=== PATIENT | female | born 1980 | race Caucasian/White ===

== ENCOUNTER 2017-01-08 11:32 | Emergency (ER) | payer MEDICARE, MEDICAID ==
[~2017-01-08] VITALS: Ht 170.2 cm; Wt 220.4 kg
[~2017-01-08 11:32] MED LIST: CYCLOBENZAPRINE10 M2 OR; FLUOXETINE20 M2 FT; FUROSEMIDE 40MG40 M1 PO; LISINOPRIL10 MG PO; MELOXICAM15 MG PO; MORPHINE SULFAT30 M3 PO; QUETIAPINE FUM100 M2 PO; RANITIDINE300 MG PO; TRAMADOL HYDROC50 M1 PO; WARFARIN SODIU7.5 MG PO; WARFARIN SODIUM5 MG PO
--- NOTE | 2017-01-08 11:55 | Emergency Room Report ---
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 N Clinical Suspician of Infection? N Mental Status: 1 - Regular (Normal Baseline) Sepsis Risk:Possible Sepsis Risk Have you (or family members/close friends) recently traveled outside the [place]? N If Yes, where/when: Have you had exposure to infectious disease within the past month? N TB? Other? Specify: 36 years old white female with multiple medical problems including obesity confined to wheelchair, diabetes mellitus [id number], psoriasis, pulmonary embolism and recent history of anterior abdominal wall skin infection. She has been seeing Dr. Montgomery has been treating her with Neosporin and frequent dressings with improvement of the midline region. They noticed having faint bruising rash to the lateral aspect of the abdominal. It was markedly with the plan and she'll call Dr. Montgomery who told her to come to the ED and be checked. The rash is still within the pen marking. She denies having fever last night but she had a fever the night before. Source patient, RN notes reviewed, family Exam Limitations no limitations ALLERGIES Coded Allergies: No Known Allergies (01/08/17) Home Medications Reported Medications TRAMADOL HCL (Tramadol Hydrochloride) 50-100 MG PO Q4-6HP #180 Lisinopril 10 MG PO DAILY #30 MORPHINE SULFATE SR/ER (Morphine Sulfate ER) 60 MG PO Q12 #90 Meloxicam (Meloxicam 15MG) 15 MG PO DAILY #30 WARFARIN SOD (Warfarin 7.5MG) 7.5 MG PO MWF Warfarin Sodium 5 MG PO SAT,SAT,T,TH #60 Quetiapine Fumarate 100 MG PO BID #60 Fluoxetine Hydrochloride (Fluoxetine) 20 MG FT DAILY #90 Cyclobenzaprine Hcl (Cyclobenzaprine Hydrochloride) 20 MG OR QHSP PRN MUSCLE RELAXER #60 Ranitidine Hydrochloride (Ranitidine) 300 MG PO QHS #30 Furosemide 40 MG PO DAILY #30 History Medical History General CAD? No Angina: No MO: No Hypertension? Yes Hyperlipidemia? No CHF? No DVT? No PE? No COPD? No Asthma? No Anemia? No GERD? No Gastric ulcers? No GI Bleed? No Hernia? No Thyroid Problems? No Hypothyroidism? No CVA? No Seizures? No Diabetes? Yes Insulin Dependent: No Insulin Pump: No Home FSBS? No Renal Insuffiency? No End Stage Renal Disease? No UTI? No Stones? No BPH? No GB Disease: No Nephritic Syndrome? No Asplenia? No Hepatitis? No Sickle Cell Disease? No Arthritis? No Migraines? No Cataracts? No Glaucoma? No MRSA? No HIV? No TB? No Anxiety? No Depression? No Cancer? No More? 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 Respiratory no symptoms reported Cardiovascular no symptoms reported Gastrointestinal no symptoms reported Genitourinary no symptoms reported. Musculoskeletal no symptoms reported Skin see HPI, rash (as described) Psychiatric/Neurological no symptoms reported Physical Exam Vital Signs Vital Signs Date Time Temp Pulse Resp B/P Pulse O2 O2 Flow FiO2 Ox Delivery Rate 01/08 1334 85 15 103/63 98 01/08 1304 96 20 75/51 97 01/08 1137 98.4 107 20 111/56 97 Alert oriented in no respiratory distress (Tiffany SANTIAGO,[facility]) - WBC >12,000 or <4,000 or 10% bands? 2 or more SIRS Criteria Met? B/P:111/56 MAP:74 Creatinine >2.0? UA output<0.5ml/kg/hr for 2 hrs? Platelet count >100,000? Lactate >2.0mmol/1? INR >1.2 or PTT > than 60 sec? Evidence of Organ Dysfunction? Provider documented clinical suspician of infection? N Sepsis Criteria Count: 2 Sepsis Risk: Possible Sepsis Risk General Appearance normal appearance, WD/WN Eye Exam - bilateral eye normal exam, bilateral eye PERRL, bilateral eye EOMI Ear, Nose, Throat hearing grossly normal, normal ENT inspection Neck normal inspection, non-tender, supple, full range of motion Respiratory Status Yes: trachea midline, chest symmetrical, non tender chest. No: respiratory distress. Lung Sounds bilateral: normal breath sounds, lungs clear. 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 Large area of faint bruising or rash on the left lateral aspect of THE abdominal wall. Medical Decision Making LABS/Meds/Orders Pt receiving controlled substance in ED? No Results/Orders Laboratory Tests 01/08/17 1315: Sodium 137, Potassium 4.5, Chloride 101, Carbon Dioxide 30, BUN 15, Creatinine 1.0, Estimated Creat Clear 271 H, Estimated GFR (MDRD) 63, Glucose 127 H, Calcium 8.4 L, Total Bilirubin 0.6, AST 12 L, ALT 24, Alkaline Phosphatase 117 H, Total Protein 6.9, Albumin 2.9 L, Globulin 4.0 H, Albumin/Globulin Ratio 0.7 L, WBC 8.3, RBC 4.38, Hgb 11.5 L, Hct 34.6 L, MCV 78.9 L, RDW 15.0, Plt Count 280, MPV 9.4, Gran % 75.5, Gran # 6.3, Lymphocytes % 16.2, Monocytes % 3.8 , Eosinophils % 4.2, Basophils % 0.4, Lymphocytes # 1.3, Monocytes # 0.3, Eosinophils # 0.4, Basophils # 0.0, PUBS MCHC 33.3, MCH 26.2 L 01/08/17 1205: Lactic Acid 1.1 Current Medication Orders Sig/Jazmín Start time Last Medication Dose Route Stop Time Status Admin Sodium Chloride 50 ML .STK-MED ONE 01/08 1234 DC IV Ceftriaxone Sodium 0 .STK-MED ONE 01/08 1232 DC IV Sodium Chloride 10 ML PRN PRN 01/08 1200 AC IV 01/09 1147 Ceftriaxone Sodium 1 GM ONCE ONE 01/08 1145 DC 01/08 Sodium Chloride 50 ML IV 01/08 1214 1330 Orders Procedure Date/time Status IV SALINE LOCK 01/08 1147 Active CULTURE, BLOOD 01/08 1141 Active LACTIC ACID 01/08 1141 Complete CBC WITH AUTO DIFF 01/08 1141 Complete CHEM 12 PROFILE 01/08 1141 Complete Departure Departure Time of Disposition 1153 Disposition DC Home or Self Care(routine) Clinical Impression Primary Impression: Cellulitis Condition STABLE Referrals Ulises SANTIAGO,Tatyana Patel Additional Instructions I discusssed with Dr Montgomery and he agreed that the rash seems stable. 1- continue the current skin care with DR Montgomery. 2- follwo up with Dr Montgomery on blood cultures. 3- obsrve for fever or vomiting to return. 4- I discussed with Dr Montgomery and we agreed to start bactrim DS an d follow up with him in 2 days. 5- return if needed Discharge Counseling Counseled pt/family regarding diagnosis, test results, medications/RX, home care, follow up needs Prescriptions Current Visit Scripts SULFAMETHOXAZOLE W/TRIMETHOPRI (Bactrim Ds Tab) 1 TABLET PO BID #20 TAB ED Critical Care Critical Care No If Critical Care minutes are documented, the time involved in the performance of seperately reportable procedures was not counted toward critical care time documented. I directly delivered medical care to this critically ill and/or injured patient. Timely evaluation and treatment was necessary to address the significant organ system(s) dysfunction present in this patient. at 1402
[2017-01-08 13:31] LABS: HEMOGLOBIN 11.5 g/dL (12.2-16.2); LYMPH # 1.3 K/mm3 (0.7-4.5); LYMPH % 16.2 % (10-50.0)
[2017-01-08] MEDS ORDERED: BACTRIM DS 8001 TA1 PO (14:01)
[2017-01-08 14:08] VITALS: BP 119/64
== END 2017-01-08 14:09 | disposition home or self-care (01) ==
LOC: ER 11:32
PROVIDERS: Emergency Medicine
DX: L03.311 Cellulitis of abdominal wall (principal); E11.9 Type 2 diabetes mellitus without complications; Z86.711 Personal history of pulmonary embolism; Z79.01 Long term (current) use of anticoagulants; Z79.899 Other long term (current) drug therapy; I10 Essential (primary) hypertension